=== PATIENT | female | born 1945 | race Caucasian/White ===

== ENCOUNTER 2018-09-21 20:19 | Emergency (ER) | payer MEDICARE, BC ==
[2018-09-21 21:47] LABS: ABSOLUTE BASOPHILS # (AUTO) 0.1 10^3/uL (0.0-0.2); ABSOLUTE MONOCYTES (AUTO) 0.6 10^3/uL (0.1-1.4); ABSOLUTE NEUT (AUTO) 4.5 10^3/uL (1.7-8.2); EOSINOPHILS % (AUTO) 0.3 % (0-6); HEMATOCRIT 35.6 % (36.0-47.0); HEMOGLOBIN 11.7 g/dL (12.0-15.5); LYMPHOCYTES % (AUTO) 28.1 % (13-45); MEAN CORPUSCULAR HEMOGLOBIN 28.3 pg (27.0-33.4); MEAN CORPUSCULAR VOLUME 86 fl (80-97); MONOCYTES % (AUTO) 8.8 % (3-13); PLATELET COUNT 362 10^3/uL (150-450); RED BLOOD COUNT 4.15 10^6/uL (3.72-5.28); RED CELL DISTRIBUTION WIDTH 16.7 % (11.5-14.0); SEGMENTED NEUTROPHILS % (AUTO) 61.8 % (42-78); TOTAL CELLS COUNTED % (AUTO) 100 %; WHITE BLOOD COUNT 7.2 10^3/uL (4.0-10.5)
[2018-09-21 21:51] LABS: ALANINE AMINOTRANSFERASE 22 U/L (9-52); ALBUMIN 4.1 g/dL (3.5-5.0); ALKALINE PHOSPHATASE 63 U/L (38-126); ANION GAP 10 (5-19); ASPARTATE AMINO TRANSFERASE 20 U/L (14-36); BILIRUBIN,DIRECT 0.1 mg/dL (0.0-0.4); BILIRUBIN,TOTAL 0.1 mg/dL (0.2-1.3); BLOOD UREA NITROGEN 14 mg/dL (7-20); CALCIUM 9.5 mg/dL (8.4-10.2); CARBON DIOXIDE 25 mmol/L (22-30); CHLORIDE 106 mmol/L (98-107); GLUCOSE 110 mg/dL (75-110); POTASSIUM 3.8 mmol/L (3.6-5.0); SODIUM 140.8 mmol/L (137-145); TOTAL PROTEIN 6.7 g/dL (6.3-8.2)
[2018-09-21] MEDS ORDERED: RINGERS SOLUTION,LACTATED 800 ML IV ONE (22:07)
[2018-09-21] MEDS ORDERED: ONDANSETRON HCL INJ/PF 4 MG/2 ML SDV IV ONE (22:08)
[2018-09-21 23:05] LABS: INTERNATIONAL RATION (INR) 0.79; PROTHROMBIN TIME 11.4 SEC (11.4-15.4)
--- NOTE | 2018-09-21 23:21 | RADIOLOGY REPORT (SQ) ---
EXAM DESCRIPTION: XR CHEST 1 VIEW COMPLETED DATE/TME: 09/21/2018 22:51 CLINICAL HISTORY: 72 years, Female, Cough, Hx COPD, Hx pneumonia COMPARISON: None. NUMBER OF VIEWS: One TECHNIQUE: Single frontal view of the chest was obtained portably LIMITATIONS: None. FINDINGS: Cardiac and mediastinal contours are normal. Patchy bibasilar opacities are evident. Lungs are otherwise clear. No pleural effusion or pneumothorax. IMPRESSION: Patchy bibasilar airspace disease. Consider atelectasis or pneumonia to include aspiration. Suggest follow-up to clearing. copyright 2010 [facility] [employer] All Rights Reserved
[2018-09-21 23:38] LABS: VENOUS BLOOD HCO3 24.6 mmol/L (20-32); VENOUS BLOOD PCO2 39.8 mmHg (35-63); VENOUS BLOOD PH 7.41 (7.30-7.42)
[2018-09-22 00:18] LABS: AMORPHOUS SEDIMENT,URINE TRACE /HPF; APPEARANCE,URINE SLIGHTLY-CLOUDY; BILIRUBIN,URINE NEGATIVE (NEGATIVE); COLOR,URINE YELLOW; GLUCOSE, URINE NEGATIVE (NEGATIVE); KETONES,URINE 80 mg/dL (NEGATIVE); LEUKOCYTE ESTERASE,URINE NEGATIVE (NEGATIVE); NITRITE,URINE NEGATIVE (NEGATIVE); PROTEIN,URINE 30 mg/dL (NEGATIVE); URINE SPECIFIC GRAVITY 1.017; UROBILINOGEN,URINE NEGATIVE mg/dL (<2.0)
[2018-09-22] MEDS ORDERED: AZITHROMYCIN 250 MG TABLET PO ONE (01:11)
[2018-09-22] MEDS ORDERED: OLANZAPINE 5 MG TAB.RAPDIS PO ONE (01:11)
[2018-09-22] MEDS ORDERED: DOXYCYCLINE HYCLATE 100 MG TABLET PO ONE (01:12)
--- NOTE | 2018-09-22 01:17 | ER Document Report ---
ED General - General Chief Complaint: Nausea/Vomiting Stated Complaint: NAUSEA/VOMITING Time Seen by Provider: 09/21/18 22:07 Notes: Patient is a 72-year-old female with a past medical history of tobacco abuse, essential hypertension, COPD, presents with several complaints. The primary concern initially is that the patient has had progressive weight loss, nausea, refusal to eat, and that this is been worsening over the past 1 year but part icularly over the past 1 month. Recently had her doses of buspirone and citalopram doubled due to lack of control of her anxiety and depression symptoms but family and patient states that this seems to have made her symptoms significantly worse. States that she has been on citalopram and buspirone and total for approximately 1 year and initially started these medications secondary to dealing with difficulty with coping with her 's diagnosis of dementia. The patient is requesting assistance with getting off of these medications and family likewise agrees that they appear to be making her much worse. The patient is also complaining of shortness of breath and cough that has been ongo ing for the past 3 to 4 days. States this feels similar to when she has had pneumonia in the past. Regards her symptoms as being mild to moderate. Nothing seems to improve or worsen the symptoms. Patient has not had a fever at home. Has not seen her primary care doctor regarding today's concerns. He is asking to leave upon my initial assessment stating that she is claustrophobic, anxious and needs to get out of the hospital. TRAVEL OUTSIDE OF THE [place] IN LAST 30 DAYS: No - Related Data Allergies/Adverse Reactions: Penicillins Allergy (Verified 09/21/18 22:53) Past Medical History - General Information source: Patient, Relative - Social History Smoking Status: Current Every Day Smoker Frequency of alcohol use: None Drug Abuse: None Lives with: Spouse/Significant other Family History: Reviewed & Not Pertinent Review of Systems - Review of Systems Notes: Constitutional: Negative for fever. HENT: Negative for sore throat. Eyes: Negative for visual changes. Cardiovascular: Negative for chest pain. Respiratory: Positive for shortness of breath and cough Gastrointestinal: Negative for abdominal pain, positive for nausea and vomiting Genitourinary: Negative for dysuria. Musculoskeletal: Negative for back pain. Skin: Negative for rash. Neurological: Negative for headaches, weakness or numbness. 10 point ROS negative except as marked above and in HPI. Physical Exam - Vital signs Vitals: Temp Pulse Resp BP Pulse Ox 98.0 F 131 H 22 H 165/90 H 91 L 09/21/18 20:28 09/21/18 20:28 09/21/18 20:28 09/21/18 20:28 09/21/18 20:28 Interpretation: Hypertensive, Tachycardic, Hypoxic Notes: PHYSICAL EXAMINATION: GENERAL: Somewhat emaciated, frail elderly female in no overt distress although appears highly anxious HEAD: Atraumatic, normocephalic. EYES: Pupils equal round and reactive to light, extraocular movements intact, sclera anicteric, conjunctiva are normal. ENT: nares patent, oropharynx clear without exudates. Moist mucous membranes. NECK: Normal range of motion, supple without lymphadenopathy LUNGS: Mildly tachypneic, diminished at the bases bilaterally. No distress. HEART: Regular tachycardia without murmurs ABDOMEN: Soft, nontender, normoactive bowel sounds. No guarding, no rebound. No masses appreciated. EXTREMITIES: Normal range of motion, no pitting or edema. No cyanosis. NEUROLOGICAL: No focal neurological deficits. Moves all extremities spontaneously and on command. PSYCH: Highly anxious, tremulous SKIN: Warm, Dry, normal turgor, no rashes or lesions noted. Course - Re-evaluation Re-evalutation: 09/22/18 01:12 Patient presents with multiple concerns most of which focus on approximate 1 year of progressively worsening tremulousness, anxiety, poor appetite and progressive weight loss. Patient is on buspirone and citalopram and feels these medications are making her symptoms worse. On exam the patient is extremely anxious, claustrophobic, asking to leave the hospital immediately upon my assessment. She is tremulous, obviously highly anxious. Her laboratory assessment is otherwise unremarkable. Her chest x-ray however demonstrates findings consistent with a bilateral lower lobe pneumonia. Patient has had a cough with sputum production for the last several days and states this feels similar to when she had mono in the past. The patient is not agreeable to remaining in the hospital stating that she needs to leave as she is claustrophobic. She was willing to stay to allow us to administer antibiotics orally as well as give a dose of oral olanzapine to see if this helps calm her anxiety. 5mg olanzapine as well as doxycycline 100 mg of been administered. Patient's oxygen saturations were quite borderline triage at 91% and I have emphasized the patient that I do believe she would be appropriate for hospitalization 09/22/18 02:26 I had multiple conversations with the patient and her family about her borderline oxygenation, ongoing tachycardia, and my preference for her to be hospitalized. Patient declined stating that she needs to take care of her who has Alzheimer's. She is not open to conversation regarding hospitalization at this point stating that she understands the risks of going home particular given her borderline oxygenation and advanced age but that hospitalization is not an option. She specifically states an understanding that she could become hypoxic, have respiratory distress and even have a cardiac arrest. Family did witness this conversation. The patient has had significant improvement of her anxiety and tremulousness after receiving 5 mg of oral olanzapine. I have encouraged her to wean off of buspirone which seems to be exacerbating her symptoms in conjunction with her primary care doctor or a geriatric psychiatrist. At this time will discharge with return precautions and follow-up recommendations. Discharge that patient and family's request. Verbal discharge instructions given a the bedside and opportunity for questions given. Medication warnings reviewed. Patient is in agreement with this plan and has v erbalized understanding of return precautions and the need for primary care follow-up in the next 24-72 hours. - Vital Signs Vital signs: Temp Pulse Resp BP Pulse Ox 98.3 F 115 H 18 136/76 H 91 L 09/22/18 01:39 09/22/18 01:39 09/21/18 23:59 09/22/18 01:39 09/22/18 01:39 - Laboratory Result Diagrams: 09/21/18 21:13 09/21/18 21:13 Laboratory results interpreted by me: 09/21/18 09/21/18 09/22/18 21:13 21:13 00:04 Hgb 11.7 L Hct 35.6 L RDW 16.7 H Total Bilirubin 0.1 L Urine Protein 30 H Urine Ketones 80 H - Diagnostic Test Radiology reviewed: Image reviewed, Reports reviewed Radiology results interpreted by me: 09/22/18 02:25 Chest x-ray: Bibasilar infiltrates - EKG Interpretation by Me Additional EKG results interpreted by me: 09/22/18 02:25 Sinus tachycardia, rate 117. No ST elevations or depressions. QTC is 469. Discharge - Discharge Clinical Impression: Generalized anxiety disorder Bilateral pneumonia Qualifiers: Pneumonia type: due to unspecified organism Lung location: lower lobe of lung Qualified Code(s): J18.1 - Lobar pneumonia, unspecified organism Condition: Stable Disposition: HOME, SELF-CARE Additional Instructions: Please follow-up closely with your primary care doctor. As we discussed, my preference is to hospitalize you tonight given that your oxygen level is borderline. You have however elected to go home. Please take all oral anti bodies as prescribed. Regarding the chronic anxiety and depression that you have had: I would gradually taper off buspirone as this appears to be exacerbating her symptoms. My preference is that you do this in conjunction with your primary care doctor or with a geriatric psychiatrist. In general when tapering off this medication we recommend that you quarter the dose each week until you are no longer on it. As an example you would take three quarters of your normal dose on week 1, half your normal dose on week 2, one fourth of your normal dose on week 3 and then discontinue the medication thereafter. You have been started on olanzapine 5 mg twice daily as needed for anxiety. I would re commend [facility] geriatric psychiatry for further evaluation. Please return to the emergency department immediately if you have worsening shortness of breath, pass out, become unable to exert yourself secondary to shortness of breath, have persistent vomiting, or have any other symptoms that are worrisome to you. Prescriptions: Doxycycline Hyclate 100 mg PO BID #14 capsule Olanzapine [Olanzapine Odt] 5 mg PO BID PRN #30 tab.rapdis PRN Reason:
[2018-09-22 01:39] VITALS: BP 136/76
--- NOTE | 2018-09-22 12:47 | EKG REPORT ---
SEVERITY:- ABNORMAL ECG - SINUS TACHYCARDIA BORDERLINE RIGHT AXIS DEVIATION CONSIDER ANTEROSEPTAL INFARCT : Confirmed by: Phil Landis 22-Sep-2018 12:46:16
== END 2018-09-22 02:31 | disposition home or self-care (01) ==
LOC: ER 20:19
DX: J18.1 Lobar pneumonia, unspecified organism (principal); F41.1 Generalized anxiety disorder; R11.2 Nausea with vomiting, unspecified; I10 Essential (primary) hypertension; J44.9 Chronic obstructive pulmonary disease, unspecified; Z88.0 Allergy status to penicillin
CPT/HCPCS: 93005; 99284; 96361; 96374; 36415; 87040; 87086; 85025; 85610; 80053; 81001; 82803; 83605; 71045; 93010; A9270 ×2; J2405; J7120; J3490